=== PATIENT | male | born 1970 | race Caucasian/White ===

== ENCOUNTER 2018-04-29 11:14 | Outpatient (CLI) | payer OTHER ==
[~2018-04-29 11:14] MED LIST: CARB15DR91 OT; LIDO20SO16 PO; PANT-47 PO
[2018-04-29 12:35] LABS: BASOPHILS # (AUTO) 0.1 X10'3 (0-0.2); BASOPHILS % (AUTO) 1.1 % (0-1); EOSINOPHILS # (AUTO) 0.6 X10'3 (0-0.9); EOSINOPHILS % (AUTO) 7.8 % (0-6); HEMATOCRIT 50.4 % (42.0-52.0); HEMOGLOBIN 16.4 g/dl (14.0-17.9); LYMPHOCYTES # (AUTO) 2.1 X10'3 (1.1-4.8); LYMPHOCYTES % (AUTO) 26.4 % (21-51); MEAN CORPUSCULAR HEMOGLOBIN 27.4 PG (27.0-31.0); MEAN CORPUSCULAR HGB CONC 32.6 % (33.0-36.5); MEAN CORPUSCULAR VOLUME 84.1 FL (78-98); MEAN PLATELET VOLUME 9.3 FL (7.4-10.4); MONOCYTES # (AUTO) 0.6 X10'3 (0-0.9); MONOCYTES % (AUTO) 7.2 % (2-12); NEUTROPHILS # (AUTO) 4.5 X10'3 (1.8-7.7); NEUTROPHILS % (AUTO) 57.5 % (42-75); PLATELET COUNT 234 X10'3 (140-440); RED BLOOD COUNT 5.99 X10'6 (4.70-6.10); RED CELL DISTRIBUTION WIDTH 13.5 % (11.5-14.5); WHITE BLOOD COUNT 7.9 X10'3 (4.5-11.0)
[2018-04-29 12:59] LABS: ALANINE AMINOTRANSFERASE 42 U/L (12-78); ALBUMIN 4.1 G/DL (3.4-5.0); ALBUMIN/GLOBULIN RATIO 1.1 (1.1-1.5); ALKALINE PHOSPHATASE 72 IU/L (46-116); ANION GAP 9 (8-16); ASPARTATE AMINO TRANSFERASE 24 U/L (10-37); BILIRUBIN,TOTAL 0.4 MG/DL (0.1-1.0); BLOOD UREA NITROGEN 10 MG/DL (7-18); BUN/CREATININE RATIO 8.8 (5.4-32.0); CALCIUM 9.5 MG/DL (8.5-10.1); CHLORIDE 100 MMOL/L (99-107); CHOL/HDL RATIO 6.5 (0.00-4.99); CHOLESTEROL 278 MG/DL (0-200); CREATININE 1.13 MG/DL (0.60-1.10); GLUCOSE 103 MG/DL (70-104); HDL CHOLESTEROL 43 MG/DL (35-60); LDL CHOLESTEROL 207 MG/DL (50-100); POTASSIUM 4.2 MMOL/L (3.5-5.1); SODIUM 138 MMOL/L (135-145); TOTAL CARBON DIOXIDE 29.4 MMOL/L (24-32); TOTAL PROTEIN 7.9 G/DL (6.4-8.2); TRIGLYCERIDES 192 MG/DL (20-135); eGFR 69 ML/MIN
== END 2018-04-29 23:59 | disposition home or self-care (01) ==
LOC: LAB 11:14
PROVIDERS: ATTEND Family Medicine
DX: H93.13 Tinnitus, bilateral (principal); E78.00 Pure hypercholesterolemia, unspecified; K21.9 Gastro-esophageal reflux disease without esophagitis; Z76.89 Persons encountering health services in other specified circumstances
CPT/HCPCS: 36415; 80053; 80061; 84436; 84443; 85025

== ENCOUNTER 2018-07-01 10:23 | Outpatient (CLI) | payer OTHER ==
[2018-07-01 12:00] LABS: CHOL/HDL RATIO 3.1 (0.00-4.99); CHOLESTEROL 154 MG/DL (0-200); HDL CHOLESTEROL 49 MG/DL (35-60); LDL CHOLESTEROL 96 MG/DL (50-100); TRIGLYCERIDES 94 MG/DL (20-135)
[2018-07-02] MEDS ORDERED: gadopentetate dimeglumine 10 MMOL/20 ML syringe IV ONE (12:45)
== END 2018-07-01 23:59 | disposition home or self-care (01) ==
LOC: RAD 10:23
PROVIDERS: ATTEND Family Medicine
DX: H93.13 Tinnitus, bilateral (principal); E78.00 Pure hypercholesterolemia, unspecified; Z79.899 Other long term (current) drug therapy
CPT/HCPCS: 36415; 70543; 70553; 80061; A9579

== ENCOUNTER 2018-11-24 08:37 | Day surgery (SDC) | payer OTHER ==
[~2018-11-24] VITALS: Ht 182.9 cm; Wt 110.0 kg
[2018-11-24 08:45] VITALS: BP 122/75
[2018-11-24] MEDS ORDERED: fentaNYL/PF 50MCG/1 ML 2ML syringe ONE (08:48)
[2018-11-24] MEDS ORDERED: MIDAZolam 5mg/5ml vial ONE (08:48)
[2018-11-24] MEDS ORDERED: LIDOcaine Viscous 15ml cup ONE (08:48)
[2018-11-24] MEDS ORDERED: ATOR20TA66 PO (09:04)
[2018-11-24] MEDS ORDERED: ONDA4TAB6 PO (09:06)
[2018-11-24 10:10] VITALS: BP 103/73
[2018-11-24 10:20] VITALS: BP 105/72
[2018-11-24 10:30] VITALS: BP 112/65
[2018-11-24 10:40] VITALS: BP 101/67
== END 2018-11-24 11:00 | disposition home or self-care (01) ==
LOC: GI LAB 08:37
PROVIDERS: ATTEND Internal Medicine Gastroenterology
DX: Z12.11 Encounter for screening for malignant neoplasm of colon (principal); D12.0 Benign neoplasm of cecum; K29.50 Unspecified chronic gastritis without bleeding; K44.9 Diaphragmatic hernia without obstruction or gangrene; K20.9 Esophagitis, unspecified
CPT/HCPCS: 43239; 43450; 45381; 45385; 99152; 99153; C1773; J2250; J3010; J7040; 45335; 45380; A4620

== ENCOUNTER 2019-03-31 12:18 | Outpatient (CLI) | payer OTHER ==
[~2019-03-31 12:18] MED LIST changes: +ATOR20TA66 PO; -CARB15DR91 OT; -LIDO20SO16 PO; +ONDA4TAB6 PO; -PANT-47 PO
[2019-04-01 07:57] LABS: CHOL/HDL RATIO 5.9 (0.00-4.99); CHOLESTEROL 252 MG/DL (0-200); HDL CHOLESTEROL 43 MG/DL (35-60); LDL CHOLESTEROL 193 MG/DL (50-100); TRIGLYCERIDES 130 MG/DL (20-135)
== END 2019-03-31 23:59 | disposition home or self-care (01) ==
LOC: LAB 12:18
PROVIDERS: ATTEND Family Medicine
DX: E78.00 Pure hypercholesterolemia, unspecified (principal)
CPT/HCPCS: 36415; 80061

== ENCOUNTER → 2019-12-01 | Outpatient (CLI) | payer BC ==
[2019-12-01 12:03] LABS: CHOL/HDL RATIO 5.6 (0.00-4.99); CHOLESTEROL 263 MG/DL (0-200); HDL CHOLESTEROL 47 MG/DL (35-60); LDL CHOLESTEROL 188 MG/DL (50-100); TRIGLYCERIDES 154 MG/DL (20-135)
== END | disposition home or self-care (01) ==
LOC: LAB 11:25
PROVIDERS: ATTEND Family Medicine
DX: E78.00 Pure hypercholesterolemia, unspecified (principal)
CPT/HCPCS: 36415; 80061

== ENCOUNTER 2019-12-26 18:36 | Emergency (ER) | payer BC ==
[~2019-12-26] VITALS: Ht 182.9 cm; Wt 107.3 kg
[2019-12-26 18:52] VITALS: BP 138/93
== END 2019-12-26 20:40 | disposition home or self-care (01) ==
LOC: ER 18:37
DX: M25.562 Pain in left knee (principal); K21.9 Gastro-esophageal reflux disease without esophagitis; Z72.89 Other problems related to lifestyle; Z79.899 Other long term (current) drug therapy
CPT/HCPCS: 73564; 99283

== ENCOUNTER 2020-01-10 09:18 | Day surgery (SDC) | payer BC ==
[~2020-01-10] VITALS: Ht 182.9 cm; Wt 104.5 kg
[2020-01-10] VITALS (8 sets, daily range): BP systolic 118–134; BP diastolic 71–82
[2020-01-10] MEDS ORDERED: fentaNYL/PF 50MCG/1 ML 2ML syringe ONE (09:34)
[2020-01-10] MEDS ORDERED: MIDAZolam 5mg/5ml vial ONE (09:34)
[2020-01-10] MEDS ORDERED: LIDOcaine Viscous 15ml cup ONE (09:34)
[2020-01-10] MEDS ORDERED: ATOR20TA12 PO (09:47)
== END 2020-01-10 11:01 | disposition home or self-care (01) ==
LOC: GI LAB 09:18
PROVIDERS: ATTEND Internal Medicine Gastroenterology
DX: R13.10 Dysphagia, unspecified (principal); K44.9 Diaphragmatic hernia without obstruction or gangrene; K22.2 Esophageal obstruction; K29.50 Unspecified chronic gastritis without bleeding
CPT/HCPCS: 43239; 43450; J2250; J3010; J7040; 99152; A4620

== ENCOUNTER 2020-02-15 08:02 | Outpatient (CLI) | payer BC ==
[~2020-02-15 08:02] MED LIST changes: +ATOR20TA12 PO; -ATOR20TA66 PO; -ONDA4TAB6 PO
[2020-02-15 09:13] LABS: CLARITY,URINE CLEAR (Clear); COLOR,URINE YELLOW (Yellow); GLUCOSE, URINE NEGATIVE (Neg); KETONES,URINE NEGATIVE (Neg); LEUKOCYTE ESTERASE ,URINE NEGATIVE (Neg); NITRITES, URINE NEGATIVE (Neg); OCCULT BLOOD,URINE TRACE-INTACT (Neg); PH,URINE 6.5 (4.8-8.0); PROTEIN,URINE NEGATIVE (Neg); UROBILINOGEN,URINE 0.2 E.U/dL (0.2-1.0)
[2020-02-15 09:19] LABS: BASOPHILS # (AUTO) 0.1 X10'3 (0-0.2); BASOPHILS % (AUTO) 1.1 % (0-1); EOSINOPHILS # (AUTO) 0.6 X10'3 (0-0.9); EOSINOPHILS % (AUTO) 8.1 % (0-6); HEMATOCRIT 46.1 % (42.0-52.0); HEMOGLOBIN 15.4 g/dl (14.0-17.9); LYMPHOCYTES # (AUTO) 1.9 X10'3 (1.1-4.8); LYMPHOCYTES % (AUTO) 25.3 % (21-51); MEAN CORPUSCULAR HEMOGLOBIN 29.2 PG (27.0-31.0); MEAN CORPUSCULAR HGB CONC 33.5 g/dL (33.0-36.5); MEAN CORPUSCULAR VOLUME 87.3 FL (78-98); MEAN PLATELET VOLUME 8.8 FL (7.4-10.4); MONOCYTES # (AUTO) 0.6 X10'3 (0-0.9); MONOCYTES % (AUTO) 7.5 % (2-12); NEUTROPHILS # (AUTO) 4.3 X10'3 (1.8-7.7); PLATELET COUNT 220 X10'3 (140-440); RED BLOOD COUNT 5.28 X10'6 (4.70-6.10); RED CELL DISTRIBUTION WIDTH 13.2 % (11.5-14.5); WHITE BLOOD COUNT 7.3 X10'3 (4.5-11.0)
[2020-02-15 09:22] LABS: BACTERIA,URINE NONE SEEN /HPF (Neg); RBC,URINE 0-2 /HPF (0-2); SQUAMOUS EPITHELIAL CELL,UR FEW /LPF (FEW); UA COLLECTION TYPE CLN CATCH MIDSTREAM; WBC,URINE NONE SEEN /HPF (0-4)
[2020-02-15 11:29] LABS: ALANINE AMINOTRANSFERASE 29 U/L (12-78); ALBUMIN 3.9 G/DL (3.4-5.0); ALBUMIN/GLOBULIN RATIO 1.2 (1.1-1.5); ALKALINE PHOSPHATASE 58 IU/L (46-116); ASPARTATE AMINO TRANSFERASE 17 U/L (10-37); BILIRUBIN,TOTAL 0.7 MG/DL (0.1-1.0); BLOOD UREA NITROGEN 10 MG/DL (7-18); BUN/CREATININE RATIO 10.4 (5.4-32.0); CALCIUM 9.1 MG/DL (8.5-10.1); CHLORIDE 107 MMOL/L (99-107); CHOLESTEROL 200 MG/DL (0-200); CREATININE 0.96 MG/DL (0.60-1.10); GLUCOSE 92 MG/DL (70-104); HDL CHOLESTEROL 42 MG/DL (35-60); POTASSIUM 3.8 MMOL/L (3.5-5.1); TOTAL CARBON DIOXIDE 30.6 MMOL/L (24-32); TOTAL PROTEIN 7.1 G/DL (6.4-8.2); eGFR 83 ML/MIN
[2020-02-15 11:30] LABS: ANION GAP 5 (8-16); CHOL/HDL RATIO 4.8 (0.00-4.99); LDL CHOLESTEROL 131 MG/DL (50-100); SODIUM 143 MMOL/L (135-145); TRIGLYCERIDES 206 MG/DL (20-135)
== END 2020-02-15 23:59 | disposition home or self-care (01) ==
LOC: LAB 08:02
PROVIDERS: ATTEND Family Medicine
DX: Z00.00 Encounter for general adult medical examination without abnormal findings (principal); K44.9 Diaphragmatic hernia without obstruction or gangrene; K21.9 Gastro-esophageal reflux disease without esophagitis; E78.00 Pure hypercholesterolemia, unspecified; Z68.31 Body mass index [BMI] 31.0-31.9, adult
CPT/HCPCS: 36415; 80053; 80061; 81001; 84439; 84443; 85025

== ENCOUNTER 2020-06-24 08:58 | Outpatient (CLI) | payer BC ==
[2020-06-24 10:19] LABS: CHOL/HDL RATIO 6.2 (0.00-4.99); CHOLESTEROL 286 MG/DL (0-200); HDL CHOLESTEROL 46 MG/DL (35-60); LDL CHOLESTEROL 208 MG/DL (50-100); TRIGLYCERIDES 199 MG/DL (20-135)
== END 2020-06-24 23:59 | disposition home or self-care (01) ==
LOC: LAB 08:58
PROVIDERS: ATTEND Family Medicine
DX: E78.00 Pure hypercholesterolemia, unspecified (principal)
CPT/HCPCS: 36415; 80061

== ENCOUNTER 2020-09-13 11:39 | Outpatient (CLI) | payer BC ==
[2020-09-13 12:19] LABS: CHOL/HDL RATIO 6.2 (0.00-4.99); CHOLESTEROL 273 MG/DL (0-200); HDL CHOLESTEROL 44 MG/DL (35-60); LDL CHOLESTEROL 183 MG/DL (50-100); TRIGLYCERIDES 298 MG/DL (20-135)
== END 2020-09-13 23:59 | disposition home or self-care (01) ==
LOC: LAB 11:39
PROVIDERS: ATTEND Family Medicine
DX: E78.00 Pure hypercholesterolemia, unspecified (principal)
CPT/HCPCS: 36415; 80061

== ENCOUNTER 2021-01-24 14:54 | Outpatient (CLI) | payer BC ==
[2021-01-24 16:09] LABS: ALANINE AMINOTRANSFERASE 32 U/L (12-78); ALBUMIN/GLOBULIN RATIO 1.1 (1.1-1.5); ALKALINE PHOSPHATASE 82 IU/L (46-116); ANION GAP 8 (8-16); ASPARTATE AMINO TRANSFERASE 22 U/L (10-37); BILIRUBIN,TOTAL 0.5 MG/DL (0.1-1.0); BLOOD UREA NITROGEN 11 MG/DL (7-18); BUN/CREATININE RATIO 9.9 (5.4-32.0); CALCIUM 8.5 MG/DL (8.5-10.1); CHLORIDE 102 MMOL/L (99-107); CREATININE 1.11 MG/DL (0.60-1.10); GLUCOSE 89 MG/DL (70-104); POTASSIUM 4.1 MMOL/L (3.5-5.1); SODIUM 139 MMOL/L (135-145); TOTAL CARBON DIOXIDE 28.6 MMOL/L (24-32); TOTAL PROTEIN 7.6 G/DL (6.4-8.2); eGFR 70 ML/MIN
== END 2021-01-24 23:59 | disposition home or self-care (01) ==
LOC: LAB 14:54
PROVIDERS: ATTEND Family Medicine
DX: E78.00 Pure hypercholesterolemia, unspecified (principal)
CPT/HCPCS: 36415; 80053

== ENCOUNTER 2021-06-23 15:16 | Outpatient (CLI) | payer BC ==
[2021-06-23 16:28] LABS: CHOL/HDL RATIO 5.8 (0.00-4.99); CHOLESTEROL 266 MG/DL (0-200); HDL CHOLESTEROL 46 MG/DL (35-60); LDL CHOLESTEROL 183 MG/DL (50-100); TRIGLYCERIDES 138 MG/DL (20-135)
== END 2021-06-23 23:59 | disposition home or self-care (01) ==
LOC: LAB 15:16
PROVIDERS: ATTEND Family Medicine
DX: E78.00 Pure hypercholesterolemia, unspecified (principal)
CPT/HCPCS: 36415; 80061

== ENCOUNTER 2021-07-11 10:44 | Outpatient (CLI) | payer BC | END 2021-07-11 23:59 | disposition home or self-care (01) | LOC: RAD 10:44 | PROVIDERS: ATTEND Family Medicine | DX: M16.11 Unilateral primary osteoarthritis, right hip (principal); M47.816 Spondylosis without myelopathy or radiculopathy, lumbar region; K40.90 Unilateral inguinal hernia, without obstruction or gangrene, not specified as recurrent; M25.551 Pain in right hip | CPT/HCPCS: 73721 ==

== ENCOUNTER 2021-08-08 19:34 | Emergency (ER) | payer BC ==
[~2021-08-08] VITALS: Ht 180.3 cm; Wt 106.0 kg
[2021-08-08 20:23] VITALS: BP 123/85
== END 2021-08-08 22:12 | disposition home or self-care (01) ==
LOC: ER 19:36
DX: M25.462 Effusion, left knee (principal); M25.562 Pain in left knee; K21.9 Gastro-esophageal reflux disease without esophagitis; Z72.89 Other problems related to lifestyle; Z79.899 Other long term (current) drug therapy
CPT/HCPCS: 29505; 73564; 99283

== ENCOUNTER 2022-02-23 07:27 | Day surgery (SDC) | payer BC ==
[~2022-02-23] VITALS: Ht 182.9 cm; Wt 109.1 kg
[2022-02-23 07:38] VITALS: BP 116/80
[2022-02-23] MEDS ORDERED: NO HOME MEDS (07:53)
[2022-02-23] MEDS ORDERED: fentaNYL/PF 50MCG/1 ML 2ML syringe ONE (08:13)
[2022-02-23] MEDS ORDERED: MIDAZolam 1 MG/ML 5ML VIAL ONE (08:14)
[2022-02-23] MEDS ORDERED: LIDOcaine Viscous 15ml cup ONE (08:14)
[2022-02-23 09:59] VITALS: BP 126/72
[2022-02-23 10:05] VITALS: BP 94/73
[2022-02-23 10:15] VITALS: BP 102/69
[2022-02-23 10:25] VITALS: BP 99/73
[2022-02-23 10:35] VITALS: BP 97/70
== END 2022-02-23 10:55 | disposition home or self-care (01) ==
LOC: GI LAB 07:27
PROVIDERS: ATTEND Internal Medicine Gastroenterology
DX: Z08 Encounter for follow-up examination after completed treatment for malignant neoplasm (principal); D12.2 Benign neoplasm of ascending colon; D12.3 Benign neoplasm of transverse colon; D12.5 Benign neoplasm of sigmoid colon; K57.30 Diverticulosis of large intestine without perforation or abscess without bleeding; Z86.010 Personal history of colon polyps; Z79.899 Other long term (current) drug therapy
CPT/HCPCS: 43239; 45385; C1773; J2250; J3010; J7030; Z7512; 99152; 99153; A4620; C1889

== ENCOUNTER 2022-03-03 14:04 | Outpatient (CLI) | payer BC ==
[~2022-03-03 14:04] MED LIST changes: -ATOR20TA12 PO; +NO HOME MEDS
[2022-03-03 14:53] LABS: BASOPHILS % (AUTO) 0.3 % (0-1); EOSINOPHILS # (AUTO) 0.3 X10'3 (0-0.9); EOSINOPHILS % (AUTO) 3.9 % (0-6); HEMATOCRIT 48.2 % (42.0-52.0); HEMOGLOBIN 16.1 g/dl (14.0-17.9); LYMPHOCYTES # (AUTO) 2.2 X10'3 (1.1-4.8); LYMPHOCYTES % (AUTO) 28.1 % (21-51); MEAN CORPUSCULAR HEMOGLOBIN 28.8 PG (27.0-31.0); MEAN CORPUSCULAR HGB CONC 33.4 g/dL (33.0-36.5); MEAN CORPUSCULAR VOLUME 86.2 FL (78-98); MEAN PLATELET VOLUME 8.7 FL (7.4-10.4); MONOCYTES # (AUTO) 0.6 X10'3 (0-0.9); MONOCYTES % (AUTO) 7.2 % (2-12); NEUTROPHILS # (AUTO) 4.8 X10'3 (1.8-7.7); NEUTROPHILS % (AUTO) 60.5 % (42-75); PLATELET COUNT 266 X10'3 (140-440); RED BLOOD COUNT 5.59 X10'6 (4.70-6.10); RED CELL DISTRIBUTION WIDTH 12.7 % (11.5-14.5)
[2022-03-03 15:06] LABS: ALANINE AMINOTRANSFERASE 28 U/L (12-78); ALBUMIN/GLOBULIN RATIO 1.2 (1.1-1.5); ALKALINE PHOSPHATASE 79 IU/L (46-116); ANION GAP 6 (8-16); ASPARTATE AMINO TRANSFERASE 22 U/L (10-37); BILIRUBIN,TOTAL 0.4 MG/DL (0.1-1.0); BLOOD UREA NITROGEN 9 MG/DL (7-18); BUN/CREATININE RATIO 8.8 (5.4-32.0); CALCIUM 9.2 MG/DL (8.5-10.1); CHLORIDE 103 MMOL/L (99-107); CHOL/HDL RATIO 6.1 (0.00-4.99); CHOLESTEROL 262 MG/DL (0-200); CREATININE 1.02 MG/DL (0.60-1.10); GLUCOSE 93 MG/DL (70-104); HDL CHOLESTEROL 43 MG/DL (35-60); LDL CHOLESTEROL 159 MG/DL (50-100); POTASSIUM 3.9 MMOL/L (3.5-5.1); SODIUM 139 MMOL/L (135-145); TOTAL CARBON DIOXIDE 30.5 MMOL/L (24-32); TOTAL PROTEIN 7.4 G/DL (6.4-8.2); TRIGLYCERIDES 270 MG/DL (20-135); eGFR 76 ML/MIN
== END 2022-03-03 23:59 | disposition home or self-care (01) ==
LOC: LAB 14:04
PROVIDERS: ATTEND Physician Assistant
DX: K21.9 Gastro-esophageal reflux disease without esophagitis (principal); E78.00 Pure hypercholesterolemia, unspecified
CPT/HCPCS: 36415; 80053; 80061; 85025

== ENCOUNTER 2024-03-01 13:43 | Outpatient (CLI) | payer BC | END 2024-03-01 23:59 | disposition home or self-care (01) | LOC: RAD 13:43 | PROVIDERS: ATTEND Physician Assistant | DX: M79.644 Pain in right finger(s) (principal); M25.552 Pain in left hip | CPT/HCPCS: 73130 ==

== ENCOUNTER 2024-03-06 09:51 | Outpatient (CLI) | payer BC | END 2024-03-06 23:59 | disposition home or self-care (01) | LOC: MRI 09:51 | PROVIDERS: ATTEND Physician Assistant | DX: M25.552 Pain in left hip (principal) | CPT/HCPCS: 73721 ==

== ENCOUNTER 2024-06-29 15:36 | Outpatient (CLI) | payer BC ==
[2024-06-29 16:31] LABS: BASOPHILS # (AUTO) 0.1 X10'3 (0-0.2); BASOPHILS % (AUTO) 1.2 % (0-1); EOSINOPHILS # (AUTO) 0.3 X10'3 (0-0.9); EOSINOPHILS % (AUTO) 3.9 % (0-6); HEMOGLOBIN 16.5 g/dl (14.0-17.9); LYMPHOCYTES # (AUTO) 1.8 X10'3 (1.1-4.8); LYMPHOCYTES % (AUTO) 26.1 % (21-51); MEAN CORPUSCULAR HEMOGLOBIN 29.5 PG (27.0-31.0); MEAN CORPUSCULAR HGB CONC 33.6 g/dL (33.0-36.5); MEAN CORPUSCULAR VOLUME 87.7 FL (78-98); MONOCYTES # (AUTO) 0.5 X10'3 (0-0.9); NEUTROPHILS # (AUTO) 4.2 X10'3 (1.8-7.7); NEUTROPHILS % (AUTO) 61.8 % (42-75); PLATELET COUNT 255 X10'3 (140-440); RED BLOOD COUNT 5.58 X10'6 (4.70-6.10); RED CELL DISTRIBUTION WIDTH 13.3 % (11.5-14.5); WHITE BLOOD COUNT 6.8 X10'3 (4.5-11.0)
[2024-06-29 16:53] LABS: ALANINE AMINOTRANSFERASE 34 U/L (12-78); ALBUMIN/GLOBULIN RATIO 1.3 (1.1-1.5); ALKALINE PHOSPHATASE 73 IU/L (46-116); ANION GAP 8 (8-16); ASPARTATE AMINO TRANSFERASE 20 U/L (10-37); BILIRUBIN,TOTAL 0.5 MG/DL (0.1-1.0); BLOOD UREA NITROGEN 12 MG/DL (7-18); BUN/CREATININE RATIO 10.7 (10.0-20.0); CALCIUM 8.9 MG/DL (8.5-10.1); CHLORIDE 105 MMOL/L (99-107); CHOL/HDL RATIO 6.6 (0.00-4.99); CHOLESTEROL 284 MG/DL (0-200); CREATININE 1.12 MG/DL (0.60-1.10); GLUCOSE 122 MG/DL (70-104); HDL CHOLESTEROL 43 MG/DL (35-60); LDL CHOLESTEROL 200 MG/DL (50-100); POTASSIUM 4.2 MMOL/L (3.5-5.1); SODIUM 141 MMOL/L (135-145); THYROID STIMULATING HORMONE 0.88 ulU/ml (0.34-4.50); TOTAL CARBON DIOXIDE 28.3 MMOL/L (24-32); TOTAL PROTEIN 7.2 G/DL (6.4-8.2); TRIGLYCERIDES 190 MG/DL (20-135); eGFR 68 ML/MIN
[2024-07-01 11:29] LABS: VITAMIN D, 1,25 DIHYDROXY 51.8 pg/mL (24.8-81.5)
[2024-07-01 13:32] LABS: % FREE PSA 21.7 % (.); PROSTATE SPECIFIC AG, SERUM 4.2 ng/mL (0.0-4.0); PSA, FREE 0.91 ng/mL
== END 2024-06-29 23:59 | disposition home or self-care (01) ==
LOC: LAB 15:36
PROVIDERS: ATTEND Physician Assistant
DX: E78.00 Pure hypercholesterolemia, unspecified (principal); Z00.01 Encounter for general adult medical examination with abnormal findings; H93.13 Tinnitus, bilateral; M25.552 Pain in left hip; M79.644 Pain in right finger(s); K21.9 Gastro-esophageal reflux disease without esophagitis; K44.9 Diaphragmatic hernia without obstruction or gangrene
CPT/HCPCS: 36415; 80053; 80061; 82652; 84153; 84154; 84436; 84443; 85025

== ENCOUNTER 2024-08-20 23:29 | Emergency (ER) | payer BC ==
[~2024-08-20] VITALS: Ht 182.9 cm; Wt 92.9 kg
[2024-08-20] MEDS ORDERED: LORA-835 PO (23:42)
[2024-08-20] MEDS ORDERED: AMOX500C2 PO (23:42)
--- NOTE | 2024-08-20 23:42 | Physician Documentation ---
History of Present Illness ~ Chief Complaint: Ear Pain Stated Complaint: EAR PAIN Time Seen by MD: 23:31 OK to notify your PCP?: Yes Primary Medical Doctor: [facility] Source: patient Mode of Arrival: POV Exam Limitations: no limitations HPI This is a 54-year-old male who comes in complaining of left ear pain. 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 He has been using a water pick to try to flush his ear out. He denies discharge from the ear. He states he has longstanding histo ry of problems with the issue including tinnitus. He denies dizziness. He denies fever or chills. He states his ears are itchy at times it is well. Medication Reconciliation Allergies: Coded Allergies: No Known Allergies (Unverified , 08/08/21) Miscellaneous Medications Home Med List (No Home Medications), (Reported) Past Medical History Past Medical History: GERD Past Surgical History: noncontributory Patient History: No history of colon cancer Alcohol Use: Occasionally Drug Use: none Lives In: Home Occupation: employed Physical Exam Vital Signs: Temperature: 97.8, Source: Temporal, Heart Rate: 2, Respiratory Rate: 18, BP: 157/93, Pulse Oximetry: 98, Weight: 92.860 Oxygen Flow Rate: 0 Pulse Oximetry Reflects: adequate oxygenation General Appearance: alert, WD/WN, no apparent distress Ear To inspection of the bilateral outer ears no erythema or edema surrounding the ears. No discharge from the bilateral ears from the opening of the ear canal. Right EAC TM within normal limits. Left ear canal shows no erythema edema or di scharge. The left TM is positive for bulge in his dull. There was loss of landmarks. No obvious fluid behind the TM. No erythema. No purulence. Progress Results/Orders Reviewed/noted all lab results: Yes Results/Orders Vital Signs 08/20/24 23:31 Temp 97.8 Pulse 2 Resp 18 B/P (MAP) 157/93 Pulse Ox 98 O2 Flow Rate 0 Medical Decision Making Findings I do not appreciate any signs of infection and given the bulge and dullness I suspect this is probably with the Eustachian tube or allergy related. The patient was requesting a course of antibiotics so I will place him on amoxicillin 500 mg 3 times a day for 10 days and give him a Sudafed and loratadine tablet you can take twice a day. Follow up with the primary care physician for recheck in the next couple of days and return to the ER for any worsening or concerning symptoms. Additional Comment Otalgia. Seasonal allergies. Eustachian tube dysfunction. Otitis media. Otitis externa. Departure Disposition: HOME / SELF CARE / HOMELESS Impression: Primary Impression: Otalgia of left ear Condition: Stable Discharge Instructions: Earache, Adult Additional Instructions: Take the medications as prescribed. Follow up with the primary care physician for recheck. Return to the ER for any worsening or concerning symptoms. Referrals: NO PRIMARY CARE PROVIDER (PCP) Prescriptions Loratadine/Pseudoephedrine (Claritin-D 24 Hour Tablet) 10 Mg-240 Mg Tab.er.24h 1 TAB PO DAILY for 30 Days, #30 TAB 0 Refills Prov: SARAH STANLEY 08/20/24 Amoxicillin Trihydrate* (Amoxicillin*) 500 Mg Capsule 1 CAP PO Q8H for 10 Days, #30 CAP Prov: SARAH STANLEY 08/20/24 Signature Scribe Signature: No scribe Attestation: The note accurately reflects work and decisions made by me.Sarah GREENE 08/20/24 23:42 SARAH STANLEY Aug 20, 2024 23:42
[2024-08-20 23:49] VITALS: BP 155/90; PULSE 79; RESP 18; TEMP 98.6; O2SAT 99
== END 2024-08-20 23:50 | disposition home or self-care (01) ==
LOC: ER 23:29
DX: H92.02 Otalgia, left ear (principal); K21.9 Gastro-esophageal reflux disease without esophagitis
CPT/HCPCS: 99283

== ENCOUNTER 2024-09-11 06:59 | Day surgery (SDC) | payer BC ==
[~2024-09-11] VITALS: Ht 182.9 cm; Wt 109.0 kg
[2024-09-11] MEDS ORDERED: ringers solution, lacted 1,000 ML IV SCH (07:30)
[2024-09-11] MEDS ORDERED: HYDROmorphone/PF 0.2 MG/ML SYRINGE IV PRN (07:30)
[2024-09-11] MEDS ORDERED: morphine 2 MG/ML inj. syringe IV PRN (07:30)
[2024-09-11] MEDS ORDERED: meperidine/PF 25mg/ml syringe IV PRN (07:30)
[2024-09-11] MEDS ORDERED: ondansetron/PF 4mg/2ml inj IV PRN (07:30)
[2024-09-11] MEDS ORDERED: proCHLORperazine 10 MG/2 ml inj IV PRN (07:30)
[2024-09-11] MEDS ORDERED: acetaminophen 1,000mg/100ml IV 100 ML IV PRN (07:30)
[2024-09-11 07:40] VITALS: BP 122/78; PULSE 61; RESP 16
[2024-09-11] MEDS ORDERED: propofol inj 20 ML IV ONE ×2 (08:18→08:20)
[2024-09-11 09:00] VITALS: BP 103/72; PULSE 50; RESP 10; O2SAT 98
[2024-09-11 09:10] VITALS: BP 110/69; PULSE 52; RESP 11; O2SAT 94
[2024-09-11 09:20] VITALS: BP 116/77; PULSE 56; RESP 11; O2SAT 95
[2024-09-11 09:30] VITALS: BP 129/81; PULSE 52; RESP 12; O2SAT 95
== END 2024-09-11 09:50 | disposition home or self-care (01) ==
LOC: OR 06:59 → GI LAB 09:50
PROVIDERS: ATTEND Internal Medicine Gastroenterology
DX: Z12.11 Encounter for screening for malignant neoplasm of colon (principal); D12.5 Benign neoplasm of sigmoid colon; K57.30 Diverticulosis of large intestine without perforation or abscess without bleeding; R13.10 Dysphagia, unspecified; K44.9 Diaphragmatic hernia without obstruction or gangrene; K22.89 Other specified disease of esophagus; K29.70 Gastritis, unspecified, without bleeding
CPT/HCPCS: 43239; 43248; 45385; J2704; J7030; J7120; Z7512; 43249; C1769; C1889

== ENCOUNTER 2024-09-12 09:58 | Outpatient (CLI) | payer BC ==
[2024-09-12 10:38] LABS: CHOL/HDL RATIO 6.5 (0.00-4.99); CHOLESTEROL 253 MG/DL (0-200); HDL CHOLESTEROL 39 MG/DL (35-60); LDL CHOLESTEROL 160 MG/DL (50-100); TRIGLYCERIDES 307 MG/DL (20-135)
[2024-09-12 10:51] LABS: HEMOGLOBIN A1C 5.3 % (4.5-6.2)
== END 2024-09-12 23:59 | disposition home or self-care (01) ==
LOC: LAB 09:58
PROVIDERS: ATTEND Physician Assistant
DX: R73.9 Hyperglycemia, unspecified (principal); E78.2 Mixed hyperlipidemia
CPT/HCPCS: 36415; 80061; 83036